=== PATIENT | female | born 1950 | race Caucasian/White ===

== ENCOUNTER → 2016-11-29 | Emergency (ER) | payer BC, OTHER ==
[~2016-11-29] MED LIST: KETOROLAC TROMETHAMINE 30 MG/1 ML VIAL IVPUSH ONE; KETOROLAC TROMETHAMINE 30 MG/1 ML VIAL ONE; LEVOFLOXACIN 500 MG IVPB 100 ML IVPB ONE; ONDANSETRON 4 MG/2 ML VIAL IVPUSH STA; ONDANSETRON 4 MG/2 ML VIAL ONE; OXYCODONE/APAP 5/325MG COMBO TABLET ONE; OXYCODONE/APAP 5/325MG COMBO TABLET PO ONE; SODIUM CHLORIDE 1,000 ML IV STA; traMADol HCL 50 MG TABLET ONE; traMADol HCL 50 MG TABLET PO ONE
[2016-11-29 19:11] VITALS: BMI 41.5
--- NOTE | 2016-11-29 19:39 | PDOC ---
History of Present Illness - General History Source: Patient Exam Limitations: No Limitations - History of Present Illness Initial Comments: 11/29/16 19:44 The patient is a 66 year old female with history of hypertension, hyperlipidemia , renal colic, who presents to the ED complaining of right flank pain, sharp in nature, constant in frequency, not radiating or migrating, ranked 8/10, consistent in nature with previous kidney stones, that began around 2PM today. She states her previous kidney stones have all been all the left side but today she experiences right flank pain. She states UA 2 weeks ago showed hematuria. She also reports associated nausea, no vomiting or diarrhea. She denies fever or chills. She denies dysuria, urgency, or freqeucny. Urologist: Dr. Cisneros <Jessica Lopez - Last Filed: 11/29/16 22:55> - General History Source: Patient <Roge Rosen - Last Filed: 11/29/16 23:58> - General Chief Complaint: Pain, Acute Stated Complaint: KIDNEY PAIN Time Seen by Provider: 11/29/16 19:39 Past History <Jessica Lopez - Last Filed: 11/29/16 22:55> - Past Medical History HTN: Yes Hypercholesterolemia: Yes Kidney Stones: Yes - Surgical History Cholecystectomy: Yes - Immunization History Immunization Up to Date: Yes - Psycho/Social/Smoking Cessation Hx Anxiety: No Suicidal Ideation: No Smoking Status: Yes Smoking History: Never smoked Have you smoked in the past 12 months: No Number of Cigarettes Smoked Daily: 0 Hx Alcohol Use: No Drug/Substance Use Hx: No Substance Use Type: None Hx Substance Use Treatment: No <Roge Rosen - Last Filed: 11/29/16 23:58> - Past Medical History Allergies/Adverse Reactions: Allergies Allergy/AdvReac Type Severity Reaction Status Date / Time erythromycin base Allergy Verified 11/29/16 19:06 [From E-Mycin] Penicillins Allergy Verified 11/29/16 19:06 Home Medications: Ambulatory Orders Atorvastatin Calcium [Lipitor] 10 mg PO HS 03/17/13 Carvedilol [Coreg -] 12.5 mg PO BID 03/17/13 Ramipril 5 mg PO DAILY 03/17/13 Levofloxacin [Levaquin -] 500 mg PO DAILY #5 tablet 03/23/15 Levofloxacin [Levaquin -] 500 mg PO DAILY #7 tablet 11/29/16 Tramadol HCl [Ultram -] 50 mg PO Q6H #20 tablet MDD 199911/29/16 Review of Systems - Review of Systems Able to Perform ROS?: Yes Comments:: 11/29/16 19:47 GENERAL/CONSTITUTIONAL: No fever or chills. No weakness. HEAD, EYES, EARS, NOSE AND THROAT: No change in vision. No ear pain or discharge. No sore throat CARDIOVASCULAR: No chest pain or shortness of breath. RESPIRATORY: No cough, wheezing, or hemoptysis. GASTROINTESTINAL: +Nausea. No abdominal pain, vomiting, diarrhea or constipation. GENITOURINARY: +R flank pain, hematuria. No dysuria, frequency, or urgency. MUSCULOSKELETAL: No joint or muscle swelling or pain. No neck or back pain. SKIN: No rash NEUROLOGIC: No headache, vertigo, loss of consciousness, or change in strength/ sensation. ENDOCRINE: No increased thirst. No abnormal weight change. HEMATOLOGIC/LYMPHATIC: No anemia, easy bleeding, or history of blood clots. ALLERGIC/IMMUNOLOGIC: No hives or skin allergy. <Jessica Lopez - Last Filed: 11/29/16 22:55> *Physical Exam - Vital Signs Last Vital Signs Temp Pulse Resp BP Pulse Ox 97.6 F 85 20 151/83 97 11/29/16 19:06 11/29/16 19:06 11/29/16 19:06 11/29/16 19:06 11/29/16 19:06 - Physical Exam Comments: 11/29/16 19:48 GENERAL: Awake, alert, and fully oriented, mildly uncomfortable appearing. HEAD: No signs of trauma EYES: PERRLA, EOMI, sclera anicteric, conjunctiva clear ENT: Auricles normal inspection, hearing grossly normal, nares patent, oropharynx clear without exudates. Moist mucosa NECK: Normal ROM, supple, no lymphadenopathy, JVD, or masses LUNGS: Breath sounds equal, clear to auscultation bilaterally. No wheezes, and no crackles HEART: Regular rate and rhythm, normal S1 and S2, no murmurs, rubs or gallops ABDOMEN: +mild R CVA ttp. Soft, normoactive bowel sounds. No guarding, no rebound. No masses EXTREMITIES: Normal range of motion, no edema. No clubbing or cyanosis. No cords, erythema, or tenderness NEUROLOGICAL: Cranial nerves II through XII grossly intact. Normal speech, normal gait SKIN: Warm, Dry, normal turgor, no rashes or lesions noted. <Jessica Lopez - Last Filed: 11/29/16 22:55> - Vital Signs Last Vital Signs Temp Pulse Resp BP Pulse Ox 97.6 F 85 20 151/83 97 11/29/16 19:06 11/29/16 19:06 11/29/16 19:06 11/29/16 19:06 11/29/16 19:06 <Roge Rosen - Last Filed: 11/29/16 23:58> ED Treatment Course - LABORATORY CBC & Chemistry Diagram: 11/29/16 19:50 11/29/16 19:55 <Jessica Lopez - Last Filed: 11/29/16 22:55> - LABORATORY CBC & Chemistry Diagram: 11/29/16 19:50 11/29/16 19:55 <Roge Rosen - Last Filed: 11/29/16 23:58> Medical Decision Making - Medical Decision Making 11/29/16 22:[address], reviewed and interpreted by Dr. Stubbs shows a 4.5 mm obstructing stone in the distal right ureter just prior to the uretovesical junction with mild right hydronephrosis and hydroureter. <Jessica Lopez - Last Filed: 11/29/16 22:55> - Medical Decision Making 11/29/16 23:57 Dr. Rosen: The scribe's documentation has been prepared under my direction and personally reviewed by me in its entirery. I confirm that the note above accurately reflects all work, treatment, procedures, and medical decision making performed by me. patient with UTI and OBSTRUCTING right_SIDED kidney stone. Pt feels well enough to go home and follow up with urology <Roge Rosen - Last Filed: 11/29/16 23:58> *DC/Admit/Observation/Transfer - Attestations Scribe Attestion: 11/29/16 19:49 Documentation prepared by Jessica Lopez, acting as medical billing and coding specialist for Roge Rosen DO. <Jessica Lopez - Last Filed: 11/29/16 22:55> - Discharge Dispostion Admit: No <Roge Rosen - Last Filed: 11/29/16 23:58> Diagnosis at time of Disposition: Urinary tract obstruction due to kidney stone, Ureteral stone with hydronephrosis - Discharge Dispostion Disposition: HOME Condition at time of disposition: Stable - Prescriptions Prescriptions: Levofloxacin [Levaquin -] 500 mg PO DAILY #7 tablet Tramadol HCl [Ultram -] 50 mg PO Q6H #20 tablet MDD 1999 - Referrals Referrals: Mateus Townsend MD [Primary Care Provider] - Charanjit Kolb MD [Staff Physician] - - Patient Instructions Printed Discharge Instructions: DI for Urinary Tract Infection (UTI), Kidney Stones -- Adult
[2016-11-29 20:22] LABS: BASOPHIL 0.6 % (0-2.0); EOSINOPHIL 2.2 % (0-4.5); MCH 32.1 pg (25.7-33.7); MCHC 33.5 g/dl (32.0-36.0); MEAN CELL VOLUME 95.7 fl (80-96); MEAN PLT VOLUME 9.9 fl (7.5-11.1); NEUTROPHILS 67.2 % (42.8-82.8); PLATELET COUNT 202 K/MM3 (134-434); RDW 13.3 % (11.6-15.6)
[2016-11-29 20:45] LABS: ALBUMIN 3.8 g/dl (3.4-5.0); ALK PHOS 81 U/L (45-117); ANION GAP 10 (8-16); BILIRUBIN,TOTAL 0.5 mg/dL (0.2-1.0); CALCIUM 8.6 mg/dL (8.5-10.1); CO2 25 mmol/L (21-32); CREATININE 0.9 mg/dL (0.55-1.02); GLUCOSE,RANDOM 90 mg/dL (74-106); SGOT/AST 12 U/L (15-37); SGPT/ALT 23 U/L (12-78)
[2016-11-29 20:58] LABS: URINE APPEARANCE SLCLOUDY; URINE BILIRUBIN NEGATIVE (NEGATIVE); URINE COLOR LTYELLOW; URINE GLUCOSE (UA) NEGATIVE (NEGATIVE); URINE KETONE NEGATIVE (NEGATIVE); URINE NITRITE POSITIVE (NEGATIVE); URINE PROTEIN NEGATIVE (NEGATIVE); URINE UROBILINOGEN NEGATIVE E.U./dl (0.2-1.0)
[2016-11-29 21:05] LABS: URINE BLOOD 2+ (NEGATIVE); URINE LEUK ESTERASE 2+ (NEGATIVE)
[2016-11-29 21:13] LABS: URINE BACTERIA MODERATE /hpf (NONE SEEN); URINE MUCUS RARE; URINE WBC 25 /hpf (3-5)
[2016-11-29 21:14] LABS: URINE RBC 4 /hpf (0-3)
[2016-11-30 00:31] VITALS: BP 140/82; PULSE 82; TEMP 97.8
--- NOTE | 2016-12-07 11:53 | OP ---
DATE OF OPERATION: 12/06/2016 PREOPERATIVE DIAGNOSIS: Obstructing right distal ureteral stone. POSTOPERATIVE DIAGNOSIS: Obstructing right distal ureteral stone. PROCEDURE: Cystoscopy, ureteroscopy, stone manipulation, stent placement. SURGEON: Radha Conway MD INDICATION: Patient is a 66-year-old female with history of recurrent nephrolithiasis, now with a 5-mm obstructing right distal ureteral stone and UTI. She was taken to the OR for ureteroscopy, laser lithotripsy, and stent placement. Risks, benefits, and alternatives discussed. After informed consent was obtained, patient taken to the OR and placed supine on the table. After cardiac monitoring initiated and general anesthesia established, she was prepped and draped in the dorsal lithotomy position. The rigid cystoscope was inserted into the urethra without difficulty and into the bladder. Left ureteral orifice was normal. Right ureteral orifice revealed evidence of of a stone. A guidewire was advanced beyond the stone into the right renal pelvis guidewire withdrawn. Scope was advanced, and the stone was manipulated with the scope and then the stone then passed into the bladder. Ureteroscope was then advanced to inspect the entire ureter. Entire ureter was clean; no other stones were noted. Contrast injected for retrograde pyelogram noted hydroureteronephrosis. Ureteroscope was then removed. The stone was removed and sent to Pathology for analysis, and then a 6-Wallisian 24-cm stent was then advanced in fashion. Fluoroscopy confirmed stent to be in position. Patient then awoken from anesthesia and transferred to the recovery room in stable condition. There were no complications. Estimated blood loss was minimal. RADHA CONWAY M.D. [id number]
== END | disposition home or self-care (01) ==
LOC: JER 19:05
PROC: 3E03329 Introduction of Other Anti-infective into Peripheral Vein, Percutaneous Approach (ICD-10-PCS; principal; 2016-11-29)
PROC: 3E0333Z Introduction of Anti-inflammatory into Peripheral Vein, Percutaneous Approach (ICD-10-PCS; 2016-11-29)
PROC: 3E033GC Introduction of Other Therapeutic Substance into Peripheral Vein, Percutaneous Approach (ICD-10-PCS; 2016-11-29)
PROC: 3E0337Z Introduction of Electrolytic and Water Balance Substance into Peripheral Vein, Percutaneous Approach (ICD-10-PCS; 2016-11-29)
DX: N28.89 Other specified disorders of kidney and ureter (principal); N13.39 Other hydronephrosis; N20.1 Calculus of ureter; I10 Essential (primary) hypertension; E78.5 Hyperlipidemia, unspecified
CPT/HCPCS: 36415; 74176; 80053; 81003; 81015; 85025; 87086; 87186; 99282-25

== ENCOUNTER 2016-12-06 06:14 | Day surgery (SDC) | payer BC, OTHER ==
[2016-12-05 14:40] VITALS: BMI 42.6
[2016-12-06] MEDS ORDERED: LIDOCAINE HCL/PF 2% SDV 5ML VIAL ONE (07:31)
[2016-12-06] MEDS ORDERED: LEVOFLOXACIN 500 MG IVPB 100 ML IVPB ONE (07:31)
[2016-12-06] MEDS ORDERED: PROPOFOL 20 ML ONE ×2 (07:32)
[2016-12-06] MEDS ORDERED: MIDAZOLAM HCL 2 MG/2 ML SINGLE DOSE VIAL ONE (07:32)
[2016-12-06] MEDS ORDERED: LEVOFLOXACIN 500 MG PREMIX BAG IVPB ONE (07:45)
[2016-12-06] MEDS ORDERED: IOHEXOL 300 MG/ML INFUS..BTL IJ ONE (07:50)
[2016-12-06] MEDS ORDERED: DEXAMETHASONE SOD PHOSPHATE 4 MG/1 ML VIAL ONE (07:55)
[2016-12-06] MEDS ORDERED: oxyCODONE HCL 5 MG TABLET PO PRN (08:09)
--- NOTE | 2016-12-06 08:11 | OP ---
Operative Note - Note: Operative Date: 12/06/16 Pre-Operative Diagnosis: right distal ureteral stone Operation: cysto/retrograde/right ureteroscopy/stone manipulation/stent placement Post-Operative Diagnosis: Same as Pre-op Surgeon: Charanjit Kolb Anesthesia: General Specimens Removed: stone Estimated Blood Loss (mls): 2 Drains & Tubes with Location: 6fr, 24cm stent Operative Report Dictated: Yes
[2016-12-06] MEDS ORDERED: PROMETHAZINE HCL 25 MG/1 ML VIAL IVPUSH PRN (08:15)
[2016-12-06] MEDS ORDERED: LACTATED RINGERS SOLUTION 1,000 ML IV SCH (08:15)
[2016-12-06] MEDS ORDERED: ONDANSETRON 4 MG/2 ML VIAL IVPUSH PRN (08:15)
[2016-12-06] MEDS ORDERED: ACETAMINOPHEN 325 MG TABLET (FP) PO PRN (08:15)
[2016-12-06] MEDS ORDERED: ELECTROLYTE-148 SOLN 1,000 ML IV SCH (08:15)
[2016-12-06] MEDS ORDERED: oxyCODONE HCL 5 MG TABLET ONE (09:56)
[2016-12-06 10:22] VITALS: TEMP 98.2
[2016-12-06 11:35] VITALS: BP 100/60; PULSE 79
--- NOTE | 2016-12-07 08:34 | PATH ---
Surgical Pathology Report Patient Name: ANA MICHELLE [facility]. Rec. #: [id number] /Age/Gender: 1950 (Age: 66) / F Account: [id number] Location: [facility] Taken: 12/06/2016 Received: 12/06/2016 Reported: 12/07/2016 Physicians: Charanjit Kolb M.D. Specimen(s) Received BLADDER STONE Clinical History Right ureteral calculi Final Diagnosis BLADDER STONE, EXTRACTION: CALCULI SUBMITTED FOR CHEMICAL ANALYSIS (gross only). Electronically Signed Jorge Luis Hoffmann M.D. Gross Description Received fresh labeled "bladder stone," is a 0.6 cm in greatest dimension otto-brown, irregular calculus which is sent for chemical analysis. /12/06/2016/12/06/2016
[2016-12-14 00:12] LABS: COLOR Brown (.); URIC ACID 40 % (.)
--- NOTE | 2017-01-02 22:34 | OP ---
DATE OF OPERATION: 12/06/2016 PREOPERATIVE DIAGNOSIS: Right distal ureteral stone. POSTOPERATIVE DIAGNOSIS: Right distal ureteral stone. PROCEDURE: Cystoscopy, retrograde pyelogram, right ureteroscopy, stone manipulation, and stent placement. SURGEON: Radha Conway MD INDICATION: The patient is a 66-year-old female with recurrent nephrolithiasis, now with an obstructing right distal ureteral stone. She is taken to the OR for ureteroscopy of the stone. The patient was taken to the OR, placed supine on operating table, cardiac monitoring administered, general anesthesia established. She was prepped and draped in dorsal lithotomy position. The 22 sheath cystoscope was inserted without difficulty. Urethra was normal. The bladder was then visualized. Attention was turned to the right ureteral orifice and the guidewire was advanced into the orifice into the right renal pelvis. Alongside the guidewire, a semirigid ureteroscope was advanced into the distal ureter, where a stone was seen. Using the tip of the scope and irrigation, the stone was irrigated out of the ureter and into the bladder. The stone was then retrieved out of bladder and sent to Pathology for analysis. Repeat ureteroscopy revealed no evidence of any other ureteral stone with the rigid ureteroscope. Rigid ureteroscope was then removed and a 6-Algerian 24-cm double pigtail stent was then advanced in a monorail fashion. Fluoroscopy confirmed stent being in good position. Patient then awoke from anesthesia and transferred to recovery room in stable condition. There were no complications. Estimated blood loss minimal. RADHA CONWAY M.D. [id number]
== END 2016-12-06 11:40 | disposition home or self-care (01) ==
LOC: JASU-SURG 06:14
PROVIDERS: ATTEND Urology
PROC: 02HV33Z Insertion of Infusion Device into Superior Vena Cava, Percutaneous Approach (ICD-10-PCS; principal; 2016-12-06 07:30)
PROC: B548ZZA Ultrasonography of Superior Vena Cava, Guidance (ICD-10-PCS; 2016-12-06 07:30)
DX: M86.9 Osteomyelitis, unspecified (principal)
CPT/HCPCS: 36415; 76000-TC; 82360; 88300-TC; 94760

== ENCOUNTER 2016-12-28 19:19 | Emergency (ER) | payer BC, OTHER ==
[2016-12-28 19:27] VITALS: BP 139/82; PULSE 70; TEMP 98.2; BMI 40.9
--- NOTE | 2016-12-28 20:54 | PDOC ---
History of Present Illness - General Chief Complaint: Injury Stated Complaint: PCP SENT/FALL/HEAD INJURY Time Seen by Provider: 12/28/16 20:46 History Source: Patient Exam Limitations: No Limitations - History of Present Illness Initial Comments: CHIEF COMPLAINT: 66 y/o female with PMH HTN, HLD, chronic kidney stones c/o left elbow and right knee pain s/p fall today. HISTORY OF PRESENT ILLNESS: The patient was at [facility] about 9 hours ago when the wheels to her cart got stuck and she fell over the cart. She states she hit her right elbow and left knee first then hit her forehead on the ground. She denies LOC, POSEY, changes in vision/hearing, neck pain, n/v/d, CP, SOB, abd pain, back pain, numbness/tingling in extremities. She is walking but with slight limp. She is not on a blood thinner. She saw her PCP today who sent her in mostly for xrays of her left arm. The patient took a percocet at home prior to coming to the ER. Vital signs on arrival are within normal limits. REVIEW OF SYSTEMS: GENERAL/CONSTITUTIONAL: No fever/chills. No weakness. No weight change. HEAD, EYES, EARS, NOSE AND THROAT: No change in vision. No ear pain or discharge. No sore throat. CARDIOVASCULAR: No chest pain or shortness of breath. RESPIRATORY: No cough, wheezing, or hemoptysis. GASTROINTESTINAL: No abd pain, nausea, vomiting, diarrhea. GENITOURINARY: No dysuria, frequency, or change in urination. MUSCULOSKELETAL: +left elbow and right knee pain. No neck or back pain. SKIN: No rash or easy bruising. NEUROLOGIC: No headache, vertigo, loss of consciousness, or loss of sensation. PHYSICAL EXAM: GENERAL: The patient is awake, alert, and fully oriented, in no acute distress. She is an obese female, ambulatory with slight limp. HEAD: Slightly raised hematoma to right forehead, approximately 4cm x 4cm. No battles signs NECK: No midline cervical spine TTP or step offs. Full flexion and extension of cervical spine ENT: Pupils equal, round and reactive to light, extraocular movements intact, sclera anicteric, conjunctiva clear. No raccoon eyes. No pain with EOMs. No hemotympanum b/l. LUNGS: Clear to auscultation bilaterally. Normal excursion. No respiratory distress or use of accessory muscles. CV: RRR, S1/S2, no MRG. Cap refill < 2 sec. ABDOMEN: Soft, non-distended, non-tender even to deep palpation, no hepatomegaly or splenomegaly, no masses. EXTREMITIES: Pt holding left arm at her side. TTP of proximal left forearm and olecranon without obvious deformity, swelling or crepitus. Ecchymosis to right proximal tibial with TTP of that area. Full flexion and extension of right knee. NEUROLOGICAL: Normal speech, normal gait. CN II-XII grossly intact. PSYCH: Normal mood, normal affect. SKIN: Warm, dry, normal turgor, no rashes or lesions noted. Past History - Past Medical History Allergies/Adverse Reactions: Allergies Allergy/AdvReac Type Severity Reaction Status Date / Time erythromycin base Allergy "ARM Verified 12/05/16 14:47 [From E-Mycin] SWELLED AFTER IV MED GIVEN" Penicillins Allergy "THROAT Verified 12/05/16 14:47 WAS ITCHY,RASH" tramadol AdvReac Intermediate Nausea Verified 12/06/16 06:36 Home Medications: Ambulatory Orders Atorvastatin Calcium [Lipitor] 10 mg PO HS 03/17/13 Carvedilol [Coreg -] 12.5 mg PO BID 03/17/13 Ramipril 5 mg PO DAILY 03/17/13 Aspirin [Aspirin EC] 81 mg PO DAILY 12/05/16 Oxycodone HCl/Acetaminophen [Percocet 5-325 mg Tablet] 1 tab PO PRN PRN HTN: Yes Hypercholesterolemia: Yes Kidney Stones: Yes - Surgical History Cholecystectomy: Yes Orthopedic Surgery: Yes (JIE ROTATOR CUFF REPAIR) - Immunization History Immunization Up to Date: Yes - Psycho/Social/Smoking Cessation Hx Anxiety: No Suicidal Ideation: No Smoking Status: Yes Smoking History: Never smoked Have you smoked in the past 12 months: No Number of Cigarettes Smoked Daily: 0 If you are a former smoker, when did you quit?: 7YRS AGO Information on smoking cessation initiated: No Hx Alcohol Use: Yes (OCCAS) Drug/Substance Use Hx: No Substance Use Type: Alcohol Hx Substance Use Treatment: No *Physical Exam - Vital Signs Last Vital Signs Temp Pulse Resp BP Pulse Ox 98.2 F 70 20 139/82 99 12/28/16 19:23 12/28/16 19:23 12/28/16 19:23 12/28/16 19:23 12/28/16 19:23 Medical Decision Making - Medical Decision Making A/P: 66 y/o female with left elbow and right knee pain s/p trip and fall approximately 9 hours ago. Plan is as follows: 1. xray left elbow/forearm 2. xray right knee The patient was offered pain medication but is declining at this time. Right knee xray IMPRESSION: Mild osteoarthritic changes. Xray left elbow/forearm IMPRESSION: Minimal irregularity of the radial head. Cannot rule out nondisplaced fracture. No joint effusion identified. Looked up her previous records and had a left elbow fracture in 2009 and there was a positive anterior fat pad. Suspect her findings may be from old fracture ? Explained results to the patient and suggested she continue to use the sling but do not feel she should be splinted at this time. Suggested f/u with either her own ortho doc or Dr. Guthrie. Instructed her to return to the ER immediately if symptoms worsen and we can splint her. She is in agreement with this plan. She does admit she has enough percocet at home and doesn't need a prescription. The patient verbalizes understanding of all instructions, has no further questions and is awaiting discharge. *DC/Admit/Observation/Transfer Diagnosis at time of Disposition: Elbow pain, left Traumatic ecchymosis of right lower leg Qualifiers: Encounter type: initial encounter Qualified Code(s): S80.11XA - Contusion of right lower leg, initial encounter Traumatic hematoma of head Qualifiers: Encounter type: initial encounter Qualified Code(s): S00.93XA - Contusion of unspecified part of head, initial encounter Injury of head Qualifiers: Encounter type: initial encounter Qualified Code(s): S09.90XA - Unspecified injury of head, initial encounter - Discharge Dispostion Disposition: HOME Condition at time of disposition: Good - Referrals Referrals: Mateus Townsend MD [Primary Care Provider] - Hero Guthrie MD [Staff Physician] - - Patient Instructions Printed Discharge Instructions: DI for Closed Head Injury, DI for Elbow Pain, DI for Contusion, DI for Hematoma (Bruise) Additional Instructions: Discharge Instructions: -Apply ice to both your leg and elbow -Take percocet for pain at home -Use sling for comfort -Follow up with Dr. Townsend and Dr. Guthrie next week -Return to the ER with any worsening or concerning symptoms.
== END 2016-12-28 22:09 | disposition home or self-care (01) ==
LOC: SUPCPDRO 19:19 → JERFT 19:19
DX: S80.11XA Contusion of right lower leg, initial encounter (principal); S00.93XA Contusion of unspecified part of head, initial encounter; S09.90XA Unspecified injury of head, initial encounter; W18.40XA Slipping, tripping and stumbling without falling, unspecified, initial encounter; Y93.89 Activity, other specified; Y92.512 Supermarket, store or market as the place of occurrence of the external cause; I10 Essential (primary) hypertension; E78.5 Hyperlipidemia, unspecified; Z87.442 Personal history of urinary calculi
CPT/HCPCS: 73070-TC-LT; 73090-TC-LT; 73560-TC-RT; 99281-25

== ENCOUNTER 2017-07-22 03:34 | Observation (INO) | payer OTHER, BC ==
[2017-07-22] MEDS ORDERED: SODIUM CHLORIDE 1,000 ML IV STA (04:25)
--- NOTE | 2017-07-22 04:26 | PDOC ---
History of Present Illness - General Chief Complaint: Pain, Acute Stated Complaint: SIDE PAIN Time Seen by Provider: 07/22/17 04:03 History Source: Patient Exam Limitations: No Limitations - History of Present Illness Travel History: No Initial Comments: 07/22/17 04:31 67yo Female patient w/ PmHx: HTN, HLD, Recurrent Renal Colic presents to ED c/o left flank pain. Patient state she was seen yesterday in this emergency department for Renal colic and sent home with instructions to increase fluid intake to try and pass stone. Patient return today states symptoms had improved , but return and is worse. Associated: Nausea, left flank pain. Review of CT- Scan from yesterday shows 6-7mm stone obstructing. Patient denies any other complaints at this time. PCP- Dr. Townsend Nephrology- Dr. Weaver Urology- Dr. Kolb Timing/Duration: reports: getting worse. denies: constant, changing over time, intermittent, resolved prior to arrival, gone now, other Quality: reports: moderate, aching, throbbing. denies: mild, severe, burning, cramping, dullness, fullness, sharpness, stabbing, other Abdominal Pain Onset Location: reports: flank (Left). denies: RUQ, LUQ, RLQ, LLQ, epigastric, periumbilical, suprapubic, generalized abdomen, unknown, other Pain Radiation: reports: no radiation. denies: RUQ, LUQ, RLQ, LLQ, epigastric, periumbilical, flank, groin, scapula, shoulder, chest, back, other Activities at Onset: reports: no specific activity. denies: none, exertion, emotional upset, rest, sleep, eating, working, sexual intercourse, other Treatment Prior to Arrive: worse with: analgesics, antacids, cold pack, heat, laxative, enema, other Aggravating Factors: worse with: None, Defecation, Eating, Emotional upset, Exertion, [place], Movement, Voiding, Change in position Past History - Travel Traveled outside of the country in the last 30 days: No Close contact w/someone who was outside of country & ill: No - Past Medical History Allergies/Adverse Reactions: Allergies Allergy/AdvReac Type Severity Reaction Status Date / Time erythromycin base Allergy "ARM Verified 07/22/17 04:08 [From E-Mycin] SWELLED AFTER IV MED GIVEN" Penicillins Allergy "THROAT Verified 07/22/17 04:08 WAS ITCHY,RASH" tramadol AdvReac Intermediate Nausea Verified 07/22/17 04:08 Home Medications: Ambulatory Orders Atorvastatin Calcium [Lipitor] 10 mg PO HS 03/17/13 Carvedilol [Coreg -] 12.5 mg PO BID 03/17/13 Aspirin [Aspirin EC] 81 mg PO DAILY 12/05/16 Losartan Potassium [Cozaar -] 50 mg PO DAILY 07/20/17 COPD: No HTN: Yes Hypercholesterolemia: Yes Kidney Stones: Yes - Surgical History Cholecystectomy: Yes Orthopedic Surgery: Yes (JIE ROTATOR CUFF REPAIR) - Immunization History Immunization Up to Date: Yes - Suicide/Smoking/Psychosocial Hx Smoking Status: Yes Smoking History: Former smoker Have you smoked in the past 12 months: No Number of Cigarettes Smoked Daily: 0 If you are a former smoker, when did you quit?: 6 YRS Information on smoking cessation initiated: No Hx Alcohol Use: No Drug/Substance Use Hx: No Substance Use Type: None Hx Substance Use Treatment: No Abd/GI Specific PMHX - Complaint Specific PMHX Colitis: No Diverticulitis: No Gall Bladder Disease: No GERD: No Hepatitis: No Irritable Bowel Synd (IBS): No Pancreatitis: No GI Ulcer Disease: No Review of Systems - Review of Systems Able to Perform ROS?: Yes Is the patient limited Indonesian proficient: No Constitutional: No: Chills, Fever ABD/GI: Yes: Nausea. No: Vomiting : No: Burning, Dysuria, Hematuria Musculoskeletal: Yes: Back Pain (Left Flank Pain) All Other Systems: Reviewed and Negative *Physical Exam - Vital Signs Last Vital Signs Temp Pulse Resp BP Pulse Ox 97.5 F L 75 14 135/55 97 07/22/17 04:08 07/22/17 04:08 07/22/17 04:08 07/22/17 04:08 07/22/17 04:08 - Physical Exam General Appearance: Yes: Nourished, Appropriately Dressed, Apparent Distress, Moderate Distress. No: Mild Distress, Severe Distress Respiratory/Chest: positive: Lungs Clear, Normal Breath Sounds. negative: Chest Tender, Respiratory Distress, Accessory Muscle Use, Rapid RR, Decreased Breath Sounds, Paradoxal Breathing, Crackles, Rales, Rhonchi, Stridor, Wheezing , Dullness Cardiovascular: positive: Regular Rhythm, Regular Rate Gastrointestinal/Abdominal: positive: Normal Bowel Sounds, Soft. negative: Increased Bowel Sounds, Decreased BS, Protuberent, Distended, Guarding, Rebound , Tenderness, Hernia Musculoskeletal: positive: Normal Inspection, CVA Tenderness, CVA Tenderness (L) . negative: CVA Tenderness (R), Decreased Range of Motion, Vertebral Tenderness Extremity: positive: Normal Capillary Refill, Normal Inspection, Normal Range of Motion, Pelvis Stable. negative: Pedal Edema, Swelling, Calf Tenderness, Erythema, Inflammation Integumentary: positive: Normal Color, Dry, Warm. negative: Erythema, Jaundice , Hives, Rash Neurologic: positive: body repairer II-XII NML intact, Fully Oriented, Alert, Normal Mood/ Affect, Normal Response, Motor Strength 01/04 ED Treatment Course - LABORATORY CBC & Chemistry Diagram: 07/22/17 04:40 07/22/17 04:40 *DC/Admit/Observation/Transfer Diagnosis at time of Disposition: Kidney stone on left side - Discharge Dispostion Condition at time of disposition: Fair Admit: Yes - Referrals Referrals: Mateus Townsend MD [Primary Care Provider] - - Patient Instructions - Post Discharge Activity
[2017-07-22] MEDS ORDERED: KETOROLAC TROMETHAMINE 30 MG/1 ML VIAL IVPUSH ONE (04:30)
[2017-07-22] MEDS ORDERED: ONDANSETRON 4 MG/2 ML VIAL IVPUSH ONE (04:30)
[2017-07-22 04:52] LABS: BASOPHIL 0.9 % (0-2.0); EOSINOPHIL 3.7 % (0-4.5); MCH 32.3 pg (25.7-33.7); MCHC 33.4 g/dl (32.0-36.0); MEAN CELL VOLUME 96.7 fl (80-96); MEAN PLT VOLUME 9.5 fl (7.5-11.1); PLATELET COUNT 183 K/MM3 (134-434); RDW 13.4 % (11.6-15.6); WHITE BLOOD COUNT 7.7 K/mm3 (4.0-10.0)
[2017-07-22 04:53] LABS: URINE APPEARANCE CLEAR; URINE BILIRUBIN NEGATIVE (NEGATIVE); URINE BLOOD 2+ (NEGATIVE); URINE COLOR STRAW; URINE GLUCOSE (UA) NEGATIVE (NEGATIVE); URINE KETONE NEGATIVE (NEGATIVE); URINE NITRITE NEGATIVE (NEGATIVE); URINE PROTEIN NEGATIVE (NEGATIVE); URINE UROBILINOGEN NEGATIVE mg/dL (0.2-1.0)
[2017-07-22 04:58] LABS: URINE BACTERIA RARE /hpf (NONE SEEN); URINE HYALINE CAST 1 /lpf; URINE MUCUS RARE
[2017-07-22 05:24] LABS: ALBUMIN 3.1 g/dl (3.4-5.0); ALK PHOS 79 U/L (45-117); ANION GAP 9 (8-16); BILIRUBIN,TOTAL 0.3 mg/dL (0.2-1.0); CALCIUM 7.7 mg/dL (8.5-10.1); CO2 23 mmol/L (21-32); CREATININE 0.8 mg/dL (0.55-1.02); GLUCOSE,RANDOM 138 mg/dL (74-106); SGPT/ALT 18 U/L (12-78); TOT PROT 6.2 g/dl (6.4-8.2)
[2017-07-22 05:26] LABS: SGOT/AST 16 U/L (15-37)
[2017-07-22] MEDS ORDERED: ONDANSETRON 4 MG/2 ML VIAL IVPUSH PRN (06:17)
--- NOTE | 2017-07-22 06:40 | HP ---
CHIEF COMPLAINT: Left flank pain PCP: Kristian HISTORY OF PRESENT ILLNESS: This is a 67 year old female with a past medical history of renal stones who presented to the ED with L flank pain for 2 days. She was seen here in the ED on 07/20; CT revealed 7mm obstructing stone in the L distal ureter. She was tx with zofran, toradol and morphine with relief and was sent home with instructions to f/u with her urologsit as an outpatient. She returned today as the pain recurred and she was unable to keep anything down. Upon exam she reports that the nausea is better, but the pain is only minimally better. Recent Travel: pt denies PAST MEDICAL HISTORY: HTN HLD renal stones (mult episodes over past 27 years) herniated lumbar discs with stenosis PAST SURGICAL HISTORY: right ureteral stent 12/06/16, removed about 1 week later cholecytectomy B/L rotator cuff repair x 2 Social History: Smoking: pt denies, quit 7 years ago Alcohol: occ glass or 2 of wine with dinner Drugs: pt denies Family History: mother age 90, CHF, DM father age 57, cirrhosis brother w/ kidney stones sister s/p BrCA, DM daughter w/ hypothyroid Allergies erythromycin base [From E-Mycin] Allergy (Verified 07/22/17 04:08) "ARM SWELLED AFTER IV MED GIVEN" Penicillins Allergy (Verified 07/22/17 04:08) "THROAT WAS ITCHY,RASH" tramadol Adverse Reaction (Intermediate, Verified 07/22/17 04:08) Nausea HOME MEDICATIONS: 3 Medication Instructions Recorded Atorvastatin Calcium [Lipitor] 10 mg PO HS 03/17/13 Carvedilol [Coreg -] 12.5 mg PO BID 03/17/13 Aspirin [Aspirin EC] 81 mg PO DAILY 12/05/16 Losartan Potassium [Cozaar -] 50 mg PO DAILY 07/20/17 REVIEW OF SYSTEMS CONSTITUTIONAL: Absent: fever, chills, diaphoresis, generalized weakness, malaise, loss of appetite, weight change HEENT: Absent: rhinorrhea, nasal congestion, throat pain, throat swelling, difficulty swallowing, mouth swelling, ear pain, eye pain, visual changes CARDIOVASCULAR: Absent: chest pain, syncope, palpitations, irregular heart rate, lightheadedness , peripheral edema RESPIRATORY: Absent: cough, shortness of breath, dyspnea with exertion, orthopnea, wheezing, stridor, hemoptysis GASTROINTESTINAL: Present: nausea, vomiting Absent: abdominal pain, abdominal distension, diarrhea, constipation, melena, hematochezia GENITOURINARY: Present: flank pain Absent: dysuria, frequency, urgency, hesitancy, hematuria, genital pain MUSCULOSKELETAL: Absent: myalgia, arthralgia, joint swelling, back pain, neck pain SKIN: Absent: rash, itching, pallor HEMATOLOGIC/IMMUNOLOGIC: Absent: easy bleeding, easy bruising, lymphadenopathy, frequent infections ENDOCRINE: Absent: unexplained weight gain, unexplained weight loss, heat intolerance, cold intolerance NEUROLOGIC: Absent: headache, focal weakness or paresthesias, dizziness, unsteady gait, seizure, mental status changes, bladder or bowel incontinence PSYCHIATRIC: Absent: anxiety, depression, suicidal or homicidal ideation, hallucinations. PHYSICAL EXAMINATION Vital Signs - 24 hr 3 07/22/17 07/22/17 04:08 06:11 Temperature 97.5 F L 98.3 F Pulse Rate 75 Pulse Rate [ 61 Apical] Respiratory 14 14 Rate Blood Pressure 135/55 Blood Pressure 140/66 [Left Arm] O2 Sat by Pulse 97 98 Oximetry (%) GENERAL: Awake, alert, and fully oriented, in no acute distress. HEAD: Normal with no signs of trauma. EYES: Pupils equal, round and reactive to light, extraocular movements intact, sclera anicteric, conjunctiva clear. No lid lag. EARS, NOSE, THROAT: Ears normal, nares patent, oropharynx clear without exudates. Moist mucous membranes. NECK: Normal range of motion, supple without lymphadenopathy, JVD, or masses. LUNGS: Breath sounds equal, clear to auscultation bilaterally. No wheezes, and no crackles. No accessory muscle use. HEART: Regular rate and rhythm, normal S1 and S2 without murmur, rub or gallop. ABDOMEN: Soft, nontender, not distended, normoactive bowel sounds, no guarding, no rebound, no masses. No hepatomegaly or splenomegaly. MUSCULOSKELETAL: Normal range of motion at all joints. No bony deformities or tenderness. mild L CVA tenderness. UPPER EXTREMITIES: 2+ pulses, warm, well-perfused. No cyanosis. No clubbing. No peripheral edema. LOWER EXTREMITIES: 2+ pulses, warm, well-perfused. No calf tenderness. No peripheral edema. NEUROLOGICAL: Cranial nerves II-XII intact. Normal speech. Normal gait. PSYCHIATRIC: Cooperative. Good eye contact. Appropriate mood and affect. SKIN: Warm, dry, normal turgor, no rashes or lesions noted, normal capillary refill. Laboratory Results - last 24 hr 3 07/22/17 07/22/17 07/22/17 04:40 04:40 04:40 WBC 7.7 RBC 3.79 Hgb 12.2 Hct 36.6 MCV 96.7 H MCH 32.3 MCHC 33.4 RDW 13.4 Plt Count 183 D MPV 9.5 Neutrophils % 57.0 Lymphocytes % 32.5 D Monocytes % 5.9 Eosinophils % 3.7 Basophils % 0.9 Sodium 142 Potassium 4.3 Chloride 110 H Carbon Dioxide 23 Anion Gap 9 BUN 15 Creatinine 0.8 Creat Clearance w eGFR > 60 Random Glucose 138 H D Calcium 7.7 L Total Bilirubin 0.3 AST 16 D ALT 18 Alkaline Phosphatase 79 Total Protein 6.2 L Albumin 3.1 L Urine Color Straw Urine Appearance Clear Urine pH 5.0 Ur Specific [place] 1.006 Urine Protein Negative Urine Glucose (UA) Negative Urine Ketones Negative Urine Blood 2+ H Urine Nitrite Negative Urine Bilirubin Negative Urine Urobilinogen Negative Urine WBC (Auto) 4 Urine RBC (Auto) 7 Ur Epithelial Cells Rare Urine Bacteria Rare Hyaline Casts 1 Urine Mucus Rare ECG Sinus bradycardia vent rate 59, QTC [address]/T changes ASSESSMENT/PLAN: 67yF with PMH kidney stones s/p R ureteral stent 12/06/16, HTN, HLD, herniated lumbar discs with stenosis presented to the ED with L flank pain. Kidney stone/renal colic - morphine 2mg Q4h PRN, monitor efficacy and increased dose PRN - zofran 4mg Q6h PRN - hold ASA and nSAIDs for possible intervention - flomax daily - NPO for now - urology consult HTN - cont home meds HLD - cont home meds DVT PPX - deferred, expected LOS <48h FEN - NS @ 75cc/hr - BMP in am - NPO for now Dispo: Pt currently requires inpatient management of her emergent condition; however expected LOS is <2MN Visit type - Emergency Visit Emergency Visit: Yes ED Registration Date: 07/22/17 Care time: The patient presented to the Emergency Department on the above date and was hospitalized for further evaluation of their emergent condition. - New Patient This patient is new to me today: Yes Date on this admission: 07/22/17 - Critical Care Critical Care patient: No
[2017-07-22] MEDS: SODIUM CHLORIDE 1,000 ML IV SCH ×2 (08:00→16:31)
[2017-07-22 08:03] VITALS: BMI 43.2
[2017-07-22] MEDS: morphine SULFATE 4 MG/ML VIAL IVPUSH PRN ×2 (08:08→12:48)
[2017-07-22] MEDS: CARVEDILOL 12.5 MG TABLET (FP) PO SCH ×2 (09:34→21:29)
[2017-07-22] MEDS ORDERED: PNEUMOC 13-VAL CONJ-DIP CRM/PF 0.5 ML DISP.SYRIN IM ONE (10:00)
[2017-07-22] MEDS ORDERED: LOSARTAN POTASSIUM 50 MG TABLET (FP) PO SCH (10:00)
--- NOTE | 2017-07-22 13:56 | EKG ---
Test Reason : Blood Pressure : / mmHG Vent. Rate : 059 BPM Atrial Rate : 059 BPM P-R Int : 170 ms QRS Dur : 088 ms QT Int : 440 ms P-R-T Axes : 047 -10 009 degrees QTc Int : 435 ms SINUS BRADYCARDIA OTHERWISE NORMAL ECG WHEN COMPARED WITH ECG OF 22-MAR-2015 06:30, NO SIGNIFICANT CHANGE WAS FOUND Confirmed by RAMOS MCKEE MD ([id number]) on 07/22/2017 1:56:34 PM Referred By: Confirmed By:RAMOS MCKEE MD
[2017-07-22 14:13] LABS: URINE LEUK ESTERASE TRACE (NEGATIVE)
[2017-07-22] MEDS ORDERED: oxyCODONE HCL 5 MG TABLET PO PRN (16:12)
--- NOTE | 2017-07-22 17:08 | CON.GU ---
Consult - History of Present Illness History of Present Illness: 67 yo female with h/o recurrent nephrolithiasis, now with left sided flank pain and 7mm LDU stone. No fever/chills. Admitted for pain control - Past Medical History Cardio/Vascular: Yes: HTN, Hyperlipdemia Renal/: Yes: Renal Calculi - Past Surgical History Past Surgical History: Yes: Cholecystectomy, - Alcohol/Substance Use Hx Alcohol Use: No - Smoking History Smoking history: Former smoker Have you smoked in the past 12 months: No Aproximately how many cigarettes per day: 0 If you are a former smoker, when did you quit?: 6 YRS - Social History ADL: Independent History of Recent Travel: No Home Medications - Allergies Allergies/Adverse Reactions: Allergies Allergy/AdvReac Type Severity Reaction Status Date / Time erythromycin base Allergy "ARM Verified 07/22/17 04:08 [From E-Mycin] SWELLED AFTER IV MED GIVEN" Penicillins Allergy "THROAT Verified 07/22/17 04:08 WAS ITCHY,RASH" tramadol AdvReac Intermediate Nausea Verified 07/22/17 04:08 - Home Medications Home Medications: Ambulatory Orders Atorvastatin Calcium [Lipitor] 10 mg PO HS 03/17/13 Carvedilol [Coreg -] 12.5 mg PO BID 03/17/13 Aspirin [Aspirin EC] 81 mg PO DAILY 12/05/16 Losartan Potassium [Cozaar -] 50 mg PO DAILY 07/20/17 Ibuprofen [Motrin -] 400 mg PO ONCE 07/22/17 Oxycodone HCl/Acetaminophen [Percocet 5-325 mg Tablet] 1 tab PO PRN 07/22/17 Physical Exam- Vital Signs: Vital Signs Temperature 97.9 F 07/22/17 14:19 Pulse Rate 71 07/22/17 14:19 Respiratory Rate 16 07/22/17 14:19 Blood Pressure 145/74 07/22/17 14:19 O2 Sat by Pulse Oximetry (%) 98 07/22/17 07:51 Labs: CBC, BMP 07/22/17 04:40 07/22/17 04:40 Imaging - Results Cat Scan: Report Reviewed Problem List - Problems (1) Kidney stone on left side Assessment/Plan: tx options reviewed, plan for ESWL of stone in am if fails to pass Code(s): N20.0 - CALCULUS OF KIDNEY
[2017-07-22] MEDS ORDERED: ATORVASTATIN CA 10 MG TABLET (FP) PO SCH (22:00)
[2017-07-23] MEDS ORDERED: ceFAZolin SODIUM 1 GM VIAL IVPB ONE
[2017-07-23] MEDS: SODIUM CHLORIDE 1,000 ML IV SCH (00:06)
[2017-07-23 07:48] LABS: BASOPHIL 0.6 % (0-2.0); EOSINOPHIL 3.3 % (0-4.5); MCH 31.3 pg (25.7-33.7); MCHC 32.5 g/dl (32.0-36.0); MEAN CELL VOLUME 96.3 fl (80-96); MEAN PLT VOLUME 9.1 fl (7.5-11.1); NEUTROPHILS 57.4 % (42.8-82.8); PLATELET COUNT 185 K/MM3 (134-434); RDW 13.8 % (11.6-15.6); WHITE BLOOD COUNT 7.8 K/mm3 (4.0-10.0)
[2017-07-23 08:15] LABS: ANION GAP 8 (8-16); CO2 24 mmol/L (21-32); CREATININE 0.8 mg/dL (0.55-1.02); GLUCOSE,RANDOM 99 mg/dL (74-106)
[2017-07-23] MEDS ORDERED: PROPOFOL 20 ML ONE (09:28)
[2017-07-23] MEDS ORDERED: MIDAZOLAM HCL 2 MG/2 ML SINGLE DOSE VIAL ONE (09:28)
[2017-07-23] MEDS ORDERED: LEVOFLOXACIN 500 MG IVPB 500 MG/100 ML BAG IVPB ONE (09:28)
[2017-07-23] MEDS ORDERED: LEVOFLOXACIN 500 MG PREMIX BAG IVPB ONE ×2 (09:30)
[2017-07-23] MEDS ORDERED: IOHEXOL 300 MG/ML INFUS..BTL IV ONE (09:38)
--- NOTE | 2017-07-23 10:05 | OP ---
Operative Note - Note: Operative Date: 07/23/17 Pre-Operative Diagnosis: LDU stone Operation: ESWL Post-Operative Diagnosis: Same as Pre-op Surgeon: Charanjit Kolb Anesthesia: General Operative Report Dictated: Yes
[2017-07-23] MEDS ORDERED: ONDANSETRON 4 MG/2 ML VIAL IVPUSH PRN (10:45)
[2017-07-23] MEDS ORDERED: morphine SULFATE 4 MG/ML VIAL IVPUSH PRN (10:45)
[2017-07-23] MEDS ORDERED: SODIUM CHLORIDE 1,000 ML IV SCH (10:45)
[2017-07-23] MEDS ORDERED: oxyCODONE HCL 5 MG TABLET PO PRN (10:45)
--- NOTE | 2017-07-23 10:54 | OP ---
DATE OF OPERATION: 07/23/2017 PREOPERATIVE DIAGNOSIS: Obstructing left distal ureteral stone. POSTOPERATIVE DIAGNOSIS: Obstructing left distal ureteral stone. PROCEDURE: Extracorporeal shock wave lithotripsy. SURGEON: Radha Conway MD INDICATION: Patient is a 67-year-old female with obstructing left distal ureteral stone. After reviewing treatment options, elected to undergo ESWL, understood the risks of bleeding, infection, potential inability to fragment stone, potential need for additional procedures as a result, potential injury to adjacent organs. DESCRIPTION OF PROCEDURE: After informed consent was obtained, the patient was taken to the OR, placed supine on the table. After cardiac monitoring, administered general anesthesia by Tito. Stone could not be visualized under active fluoroscopy, so contrast was given, and approximately after about 15-20 minutes of contrast, there was hydronephrosis down to the distal ureter just past the SI joint. Then 3000 shocks were delivered at the area of obstruction once the area of obstruction was centered under crosshairs. At the completion of procedure patient was awoken from anesthesia and transferred to the recovery room in stable condition. There were no complications. Estimated blood loss was zero. RADHA CONWAY M.D. [id number]
--- NOTE | 2017-07-23 11:49 | DS ---
Physical Examination Vital Signs: Vital Signs Temperature 97.6 F 07/23/17 11:10 Pulse Rate 76 07/23/17 11:10 Respiratory Rate 16 07/23/17 11:10 Blood Pressure 135/61 07/23/17 11:10 O2 Sat by Pulse Oximetry (%) 99 07/23/17 11:00 Constitutional: Yes: No Distress, Calm Cardiovascular: Yes: Regular Rate and Rhythm Respiratory: Yes: CTA Bilaterally Gastrointestinal: Yes: Normal Bowel Sounds, Soft, Abdomen, Obese. No: Distention, Tenderness Renal/: No: CVA Tenderness - Left, CVA Tenderness - Right Edema: No Neurological: Yes: Alert, Oriented Psychiatric: Yes: Alert, Oriented Labs: CBC, BMP 07/23/17 07:30 07/23/17 07:30 Discharge Summary Reason For Visit: CALCULUS OF LEFT KIDNEY Current Active Problems Kidney stone on left side (Acute) Hospital Course: Pt admitted for calculus left kidney and severe intractable pain She was started on IV fluids and seen by Urology-- underwent ESWL today Pt is better and pain is well controlled Had urinated after the procedure No complaints She is stable for dc home and will be following with her PMD and Urology Condition: Fair - Instructions Referrals: Mateus Townsend MD [Primary Care Provider] - Disposition: HOME - Home Medications Comprehensive Discharge Medication List: Ambulatory Orders Atorvastatin Calcium [Lipitor] 10 mg PO HS 03/17/13 Carvedilol [Coreg -] 12.5 mg PO BID 03/17/13 Aspirin [Aspirin EC] 81 mg PO DAILY 12/05/16 Losartan Potassium [Cozaar -] 50 mg PO DAILY 07/20/17 Ibuprofen [Motrin -] 400 mg PO ONCE 07/22/17 Oxycodone HCl/Acetaminophen [Percocet 5-325 mg Tablet] 1 tab PO PRN 07/22/17
[2017-07-23 12:19] VITALS: BP 135/60; PULSE 54
[2017-07-23 14:28] VITALS: TEMP 98
[2017-07-23] MEDS ORDERED: CARVEDILOL 12.5 MG TABLET (FP) PO SCH (22:00)
[2017-07-23] MEDS ORDERED: ATORVASTATIN CA 10 MG TABLET (FP) PO SCH (22:00)
[2017-07-24] MEDS ORDERED: LOSARTAN POTASSIUM 50 MG TABLET (FP) PO SCH (10:00)
== END 2017-07-23 15:43 | disposition home or self-care (01) ==
LOC: JER 03:34 → INTOOBSV 05:42 → JERBED 05:42 → J6S 07:01
PROVIDERS: ADMIT Internal Medicine; ATTEND Internal Medicine
PROC: 3E0333Z Introduction of Anti-inflammatory into Peripheral Vein, Percutaneous Approach (ICD-10-PCS; 2017-07-22)
PROC: 3E033NZ Introduction of Analgesics, Hypnotics, Sedatives into Peripheral Vein, Percutaneous Approach (ICD-10-PCS; 2017-07-22)
PROC: 3E033GC Introduction of Other Therapeutic Substance into Peripheral Vein, Percutaneous Approach (ICD-10-PCS; 2017-07-22)
PROC: 3E0337Z Introduction of Electrolytic and Water Balance Substance into Peripheral Vein, Percutaneous Approach (ICD-10-PCS; 2017-07-22)
PROC: 3E0234Z Introduction of Serum, Toxoid and Vaccine into Muscle, Percutaneous Approach (ICD-10-PCS; 2017-07-22)
PROC: 0TF4XZZ Fragmentation in Left Kidney Pelvis, External Approach (ICD-10-PCS; principal; 2017-07-23 09:15)
DX: N13.2 Hydronephrosis with renal and ureteral calculous obstruction (principal); I10 Essential (primary) hypertension; E78.5 Hyperlipidemia, unspecified; Z79.82 Long term (current) use of aspirin; Z87.442 Personal history of urinary calculi; Z88.0 Allergy status to penicillin; Z88.8 Allergy status to other drugs, medicaments and biological substances; Z87.891 Personal history of nicotine dependence; Z23 Encounter for immunization
CPT/HCPCS: 36415; 50590; 74176; 80048; 80053; 81003; 81015; 83690; 85025; 85027; 87086; 90471; 90670; 93005; 93010; 94760; 96374; 96375; 99283-25; G0378

== ENCOUNTER 2017-12-31 23:18 | Inpatient (IN) | payer OTHER, BC ==
[2018-01-01] MEDS ORDERED: KETOROLAC TROMETHAMINE 30 MG/1 ML VIAL IVPUSH ONE (00:17)
[2018-01-01] MEDS ORDERED: SODIUM CHLORIDE 1,000 ML IV STA (00:17)
--- NOTE | 2018-01-01 00:17 | PDOC ---
History of Present Illness - General Chief Complaint: Pain, Acute Stated Complaint: PAIN Time Seen by Provider: 01/01/18 00:08 History Source: Patient Exam Limitations: No Limitations - History of Present Illness Initial Comments: CHIEF COMPLAINT: 67 y/o female with PMH HTN, HLD, slipped discs in back (on Narcotic pain medication), kidney stones c/o left sided flank pain x 3 hours. HISTORY OF PRESENT ILLNESS: The patient state the pain started at 9pm and feels like a kidney stone. She also admits to nausea. She denies f/c, v/d, CP , SOB, back pain hematuria, dysuria. She took a percocet at 9pm with no relief. Vital signs on arrival are within normal limits. PCP is Dr. Townsend Urologist is Dr. Cisneros REVIEW OF SYSTEMS: GENERAL/CONSTITUTIONAL: No fever/chills. No weakness. No weight change. HEAD, EYES, EARS, NOSE AND THROAT: No change in vision. No ear pain or discharge. No sore throat. CARDIOVASCULAR: No chest pain or shortness of breath. RESPIRATORY: No cough, wheezing, or hemoptysis. GASTROINTESTINAL: +left flank pain. +nausea. No vomiting, diarrhea, constipation. GENITOURINARY: No dysuria, frequency, or change in urination. MUSCULOSKELETAL: No joint or muscle swelling or pain. No neck or back pain. SKIN: No rash or easy bruising. NEUROLOGIC: No headache, vertigo, loss of consciousness, or loss of sensation. PHYSICAL EXAM: GENERAL: The patient is awake, alert, and fully oriented, pacing back and forth in the room secondary to pain. HEAD: Normal with no signs of trauma. ENT: Pupils equal, round and reactive to light, extraocular movements intact, sclera anicteric, conjunctiva clear. Neck supple. LUNGS: Clear to auscultation bilaterally. Normal excursion. No respiratory distress or use of accessory muscles. CV: RRR, S1/S2, no MRG. Cap refill < 2 sec. ABDOMEN: TTP of left flank. No suprapubic TTP. Soft, non-distended, non-tender even to deep palpation, no hepatomegaly or splenomegaly, no masses. BACK: No CVA TTP b/l. EXTREMITIES: Normal range of motion, no edema. NEUROLOGICAL: Normal speech, normal gait. CN II-XII grossly intact. PSYCH: Normal mood, normal affect. SKIN: Warm, dry, normal turgor, no rashes or lesions noted. Past History - Past Medical History Allergies/Adverse Reactions: Allergies Allergy/AdvReac Type Severity Reaction Status Date / Time erythromycin base Allergy "ARM Verified 01/01/18 00:07 [From E-Mycin] SWELLED AFTER IV MED GIVEN" Penicillins Allergy "THROAT Verified 01/01/18 00:07 WAS ITCHY,RASH" tramadol AdvReac Intermediate Nausea Verified 01/01/18 00:07 Home Medications: Ambulatory Orders Atorvastatin Calcium [Lipitor] 10 mg PO HS 03/17/13 Carvedilol [Coreg -] 12.5 mg PO BID 03/17/13 Aspirin [Aspirin EC] 81 mg PO DAILY 12/05/16 Losartan Potassium [Cozaar -] 50 mg PO DAILY 07/20/17 Oxycodone HCl/Acetaminophen [Percocet 5-325 mg Tablet] 1 tab PO PRN 07/22/17 COPD: No HTN: Yes Hypercholesterolemia: Yes Kidney Stones: Yes - Surgical History Cholecystectomy: Yes Orthopedic Surgery: Yes (JIE ROTATOR CUFF REPAIR) - Immunization History Immunization Up to Date: Yes - Suicide/Smoking/Psychosocial Hx Smoking Status: Yes Smoking History: Never smoked Have you smoked in the past 12 months: No Number of Cigarettes Smoked Daily: 0 If you are a former smoker, when did you quit?: 6 YRS Information on smoking cessation initiated: No Hx Alcohol Use: No Drug/Substance Use Hx: No Substance Use Type: None Hx Substance Use Treatment: No *Physical Exam - Vital Signs Last Vital Signs Temp Pulse Resp BP Pulse Ox 97.8 F 88 19 133/87 99 01/01/18 00:02 01/01/18 00:02 01/01/18 00:02 01/01/18 00:02 01/01/18 00:02 ED Treatment Course - LABORATORY CBC & Chemistry Diagram: 01/01/18 00:34 01/01/18 00:34 Medical Decision Making - Medical Decision Making A/P: 67 y/o female with signs and symptoms of renal colic/kidney stones. Plan is as follows: 1. Labs 2. UA/culture 3. IV fluids 4. IV toradol 5. Spiral CT Spiral CT IMPRESSION: 10mm stone on left side with moderate hydronephrosis. Patient feels better after toradol Informed her of stone size and plan for admission. Dr. Singleton accepts admission. Will put in for ficcazola consult. *DC/Admit/Observation/Transfer Diagnosis at time of Disposition: Kidney stone on left side - Discharge Dispostion Condition at time of disposition: Fair Admit: Yes - Referrals - Patient Instructions - Post Discharge Activity
[2018-01-01] MEDS ORDERED: KETOROLAC TROMETHAMINE 30 MG/1 ML VIAL ONE (00:36)
[2018-01-01 00:45] LABS: BASO % 0.7 % (0-2.0); EOS % 2.1 % (0-4.5); HEMATOCRIT 37.1 % (32.4-45.2); HEMOGLOBIN 12.6 GM/dL (10.7-15.3); LYMPH % 26.8 % (8-40); MCH 33.3 pg (25.7-33.7); MCHC 34.1 g/dl (32.0-36.0); MEAN CELL VOLUME 97.6 fl (80-96); MEAN PLT VOLUME 8.9 fl (7.5-11.1); NEUT % 63.4 % (42.8-82.8); PLATELET COUNT 213 K/MM3 (134-434); RDW 13.5 % (11.6-15.6); WHITE BLOOD COUNT 10.1 K/mm3 (4.0-10.0)
--- NOTE | 2018-01-01 04:18 | PN ---
Teaching Attending Note Name of Resident: Senait Munoz ATTENDING PHYSICIAN STATEMENT I saw and evaluated the patient. I reviewed the resident's note and discussed the case with the resident. I agree with the resident's findings and plan as documented. SUBJECTIVE: 67 F htn, hld, renal stones, herniated lumbar discs with stenosis, who presents with left low back pain. States this pain is similar to her prior episodes of left low back pain and is non-radiating. Notes no fevers or chills. No urinary burning or pain. No, nausea, vomiting, or diarrhea. No chest pain or pressure. Pshx: R. Ureteral stent (12/06/16)- removed one week later choleycystectomy B/L rotator cuff repair X2 OBJECTIVE: Physical: VS: Vital Signs Period Temp Pulse Resp BP Sys/Spann Pulse Ox Last 24 Hr 97.8 F 68-88 18-19 130-133/80-87 99-99 GEN: NAD, Resting in bed, AA0X3 HEENT: NCAT, PERRL, Throat without erythema or exudates CARD: RRR S1, S2 RESP: CTAB ABD: BSx4, NTD to palpation EXT: - C/C/E LABS- SEE Paper chart CT abD: 10 Prox. Mid ureteral stone w. L. hydro Home Medications Medication Instructions Recorded Atorvastatin Calcium [Lipitor] 10 mg PO HS 03/17/13 Carvedilol [Coreg -] 12.5 mg PO BID 03/17/13 Aspirin [Aspirin EC] 81 mg PO DAILY 12/05/16 Losartan Potassium [Cozaar -] 50 mg PO DAILY 07/20/17 Oxycodone HCl/Acetaminophen 1 tab PO PRN 07/22/17 [Percocet 5-325 mg Tablet] Ambulatory Orders Atorvastatin Calcium [Lipitor] 10 mg PO HS 03/17/13 Carvedilol [Coreg -] 12.5 mg PO BID 03/17/13 Aspirin [Aspirin EC] 81 mg PO DAILY 12/05/16 Losartan Potassium [Cozaar -] 50 mg PO DAILY 07/20/17 Oxycodone HCl/Acetaminophen [Percocet 5-325 mg Tablet] 1 tab PO PRN 07/22/17 EKG- PENDING ASSESSMENT AND PLAN: 67 F htn, hld, renal stones, herniated lumbar discs with stenosis, who presents with left low back pain, found to have nephrolithiasis with left hydronephrosis 1.) Nephrolithiasis with Left. Hydronephrosis - IVF - Pain control - Flomax - Urine strain - Coags - Type & Screen - Urology consult - NPO 2.) UTI - U cx - Ceftriaxone 3.) HTN - C/W Coreg 4.) HLD - C/w Statin 5.) Dvt Ppx - Scds Place in Med-Sx
[2018-01-01 04:25] LABS: ALBUMIN 3.8 g/dl (3.4-5.0); ALK PHOS 64 U/L (45-117); ANION GAP 9 (8-16); BILIRUBIN,TOTAL 0.4 mg/dL (0.2-1.0); BLOOD UREA NITROGEN 17 mg/dL (7-18); CALCIUM 8.8 mg/dL (8.5-10.1); CHLORIDE 108 mmol/L (98-107); CO2 26 mmol/L (21-32); CREATININE 1.1 mg/dL (0.55-1.02); GLUCOSE,RANDOM 108 mg/dL (74-106); POTASSIUM 4.4 mmol/L (3.5-5.1); SGOT/AST 13 U/L (15-37); SGPT/ALT 21 U/L (12-78); SODIUM 143 mmol/L (136-145); TOT PROT 6.8 g/dl (6.4-8.2)
[2018-01-01] MEDS ORDERED: morphine CARPU-JECT 2 MG/1 ML DISP.SYRIN IVPUSH ONE (04:26)
[2018-01-01] MEDS ORDERED: morphine SULFATE 4 MG/ML VIAL ONE (04:27)
[2018-01-01] MEDS ORDERED: SODIUM CHLORIDE 1,000 ML IV SCH (04:30)
[2018-01-01] MEDS ORDERED: ONDANSETRON 4 MG/2 ML VIAL IVPUSH PRN (04:39)
[2018-01-01 04:42] LABS: URINE APPEARANCE CLOUDY; URINE BILIRUBIN NEGATIVE (<2.0 mg/dL); URINE COLOR YELLOW; URINE GLUCOSE (UA) NEGATIVE (NEGATIVE)
[2018-01-01 04:43] LABS: URINE KETONE NEGATIVE (NEGATIVE); URINE LEUK ESTERASE TRACE (NEGATIVE); URINE NITRITE NEGATIVE (NEGATIVE); URINE PROTEIN 1+ (NEGATIVE); URINE UROBILINOGEN NORMAL mg/dL (0.2-1.0)
[2018-01-01 04:44] LABS: EPI CELLS RARE /HPF (FEW); URIC ACID CRYSTALS FEW /hpf (NONE SEEN); URINE MUCUS RARE
--- NOTE | 2018-01-01 04:44 | HP ---
CHIEF COMPLAINT: L flank pain PCP: Dr Townsend Urologist: Dr. Cisneros HISTORY OF PRESENT ILLNESS: 67yo F with PMHx of recurrent nephrolithiasis who presents w/ sudden onset L sided flank pain since 8pm today. The pain is typical of prior stones, it is sharp, radiates to suprapubic region. Endorses some nausea. Denies fevers, chills, dysuria, freq, urgency. Denies CP SOB. Pain unrelieved w/ home percocet. States this is probably her 30th kidney stone, has had lithotripsies and stone removals in the past. Forgot what composition of stone she had. In the ER, the patient is hemodynamically stable. UA shows microscopic hematuria w/ trace LE and mild WBC. Spiral CT revealed 10mm stone in L ureter w / associated moderate hydronephrosis. Recent Travel: Denies PAST MEDICAL HISTORY: HTN, HLD, slipped discs in back (on Narcotic pain medication), Kidney stones PAST SURGICAL HISTORY: R. Ureteral stent (12/06/16)- removed one week later, Choleycystectomy, B/L rotator cuff repair, X2 Social History: Smoking: Denies Alcohol: Denies Drugs: Denies Allergies: erythromycin base [From E-Mycin] Allergy (Verified 01/01/18 00:07) "ARM SWELLED AFTER IV MED GIVEN" Penicillins Allergy (Verified 01/01/18 00:07) "THROAT WAS ITCHY,RASH" tramadol Adverse Reaction (Intermediate, Verified 01/01/18 00:07) Nausea HOME MEDICATIONS: Home Medications Medication Instructions Recorded Atorvastatin Calcium [Lipitor] 10 mg PO HS 03/17/13 Carvedilol [Coreg -] 12.5 mg PO BID 03/17/13 Aspirin [Aspirin EC] 81 mg PO DAILY 12/05/16 Losartan Potassium [Cozaar -] 50 mg PO DAILY 07/20/17 Oxycodone HCl/Acetaminophen 1 tab PO PRN 07/22/17 [Percocet 5-325 mg Tablet] REVIEW OF SYSTEMS CONSTITUTIONAL: Absent: fever, chills, diaphoresis, generalized weakness, malaise, loss of appetite, weight change HEENT: Absent: rhinorrhea, nasal congestion, throat pain, throat swelling, difficulty swallowing, mouth swelling, ear pain, eye pain, visual changes CARDIOVASCULAR: Absent: chest pain, syncope, palpitations, irregular heart rate , lightheadedness, peripheral edema RESPIRATORY: Absent: cough, shortness of breath, dyspnea with exertion, orthopnea, wheezing, stridor, hemoptysis GASTROINTESTINAL:Absent: abdominal pain, abdominal distension, nausea, vomiting , diarrhea, constipation, melena, hematochezia GENITOURINARY: Absent: dysuria, frequency, urgency, hesitancy, hematuria, flank pain, genital pain MUSCULOSKELETAL: Absent: myalgia, arthralgia, joint swelling, back pain, neck pain SKIN: Absent: rash, itching, pallor HEMATOLOGIC/IMMUNOLOGIC: Absent: easy bleeding, easy bruising, lymphadenopathy, frequent infections ENDOCRINE:Absent: unexplained weight gain, unexplained weight loss, heat intolerance, cold intolerance NEUROLOGIC: Absent: headache, focal weakness or paresthesias, dizziness, unsteady gait, seizure, mental status changes, bladder or bowel incontinence PSYCHIATRIC: Absent: anxiety, depression, suicidal or homicidal ideation, hallucinations. PHYSICAL EXAMINATION Vital Signs Period Temp Pulse Resp BP Sys/Spann Pulse Ox Last 24 Hr 97.8 F 68-88 18-19 130-133/80-87 99-99 GEN: AAOx3, NAD, Lying comfortably, smiling HEENT: PERRla, EOMi, no JVD CV: S1, S2, RRR< 3/6 systolic murmur LUNG: CTABL ABD: Soft, NT, ND, normoactive BS, mild soreness in L flank MSK: No edema, no eryhtema NEURO: CN 2-12 intact, no sensation or msk deficits ASSESSMENT/PLAN: 67yo F with PMHx of recurrent nephrolithiasis who presents w/ L sided flank pain since 8pm today, found to have 10mm L ureteral kidney stone w/ assoc mod hydro # L kidney stone w/ hydro -- Recurrent history, unclear etiology, follows w/ urology. NPO and pre-op labs for possible intervention. Hold home ASA. Morphine PRN for pain, zofran for nausea, flomax daily. Strain urine. Urology consult. # Asymptomatic Pyuria -- Will cover w/ one dose of Levaquin 750 due to severe PCN allergy, nothing scheduled. followup Ucx. # Mild Cr elevation -- Likely from obstructive hydro on L. Should improve w/ stone removal. Hold losartan # HTN -- Controlled, continue carvedilol # HLD -- Continue home statin # FEN/Ppx -- IVNS @ 100cc/hr, NPO, SCDs # Dispo -- Admit to med surg Case d/w Dr Lu & Dr Mani Munoz MD - [id number] Night Systems Coordinator Visit type - Emergency Visit Emergency Visit: Yes ED Registration Date: 01/01/18 Care time: The patient presented to the Emergency Department on the above date and was hospitalized for further evaluation of their emergent condition. - New Patient This patient is new to me today: Yes Date on this admission: 01/01/18 - Critical Care Critical Care patient: No Hospitalist Screening - Colonoscopy Questionnaire Colonoscopy Questionnaire: Colonoscopy Questionnaire - Patient: 50 - 75 years old and never had a screening colonoscopy: Unknown History of colon or rectal polyps, or CA: Unknown History of IBD, Crohn's disease or UC: Unknown History of abdominal radiation therapy as a child: Unknown - Relative: 1 with colon or rectal CA, or polyps at age 60 or younger: Unknown Colon or rectal CA diagnosed at age 45 or younger: Unknown Multiple relatives with colon or rectal CA: Unknown - Outcome: Screening Result: Negative Screen
[2018-01-01 04:45] LABS: INR 0.87 (0.82-1.09); PROTHROMBIN TIME (PATIENT) 9.8 SEC (9.7-13.0)
[2018-01-01] MEDS ORDERED: CEFTRIAXONE 1 GM in DEXTROSE 5%-WATER - 50 ML IVPB ONE (05:30)
[2018-01-01] MEDS: SODIUM CHLORIDE 1,000 ML IV SCH ×2 (05:40→20:07)
[2018-01-01 08:12] VITALS: BMI 41.8
[2018-01-01 08:49] LABS: HEMATOCRIT 34.6 % (32.4-45.2); HEMOGLOBIN 11.7 GM/dL (10.7-15.3); MCH 33.3 pg (25.7-33.7); MEAN PLT VOLUME 8.9 fl (7.5-11.1); PLATELET COUNT 163 K/MM3 (134-434); RBC 3.53 M/mm3 (3.60-5.2); RDW 13.6 % (11.6-15.6); WHITE BLOOD COUNT 6.6 K/mm3 (4.0-10.0)
[2018-01-01 09:06] LABS: ANION GAP 6 (8-16); BLOOD UREA NITROGEN 21 mg/dL (7-18); CALCIUM 7.7 mg/dL (8.5-10.1); CHLORIDE 112 mmol/L (98-107); CO2 24 mmol/L (21-32); CREATININE 1.2 mg/dL (0.55-1.02); GLUCOSE,RANDOM 107 mg/dL (74-106); PHOSPHOROUS 3.4 mg/dL (2.5-4.9); POTASSIUM 4.1 mmol/L (3.5-5.1); SODIUM 142 mmol/L (136-145)
[2018-01-01] MEDS: TAMSULOSIN HCL 0.4 MG CAP.ER.24H (FP) PO SCH (09:21)
[2018-01-01] MEDS: CARVEDILOL 12.5 MG TABLET (FP) PO SCH ×2 (09:21→21:31)
[2018-01-01] MEDS ORDERED: LOSARTAN POTASSIUM 50 MG TABLET (FP) PO SCH (10:00)
--- NOTE | 2018-01-01 10:32 | EKG ---
Test Reason : Blood Pressure : / mmHG Vent. Rate : 074 BPM Atrial Rate : 074 BPM P-R Int : 168 ms QRS Dur : 082 ms QT Int : 412 ms P-R-T Axes : 052 -23 010 degrees QTc Int : 457 ms NORMAL SINUS RHYTHM INFERIOR INFARCT , AGE UNDETERMINED ABNORMAL ECG WHEN COMPARED WITH ECG OF 22-JUL-2017 06:16, NO SIGNIFICANT CHANGE WAS FOUND Confirmed by ELISABETH GALLEGOS MD ([id number]) on 01/01/2018 10:32:04 AM Referred By: Confirmed By:ELISABETH GALLEGOS MD
--- NOTE | 2018-01-01 11:30 | CON.GU ---
Consult Consult Specialty:: Referred by:: Medicine Reason for Consultation:: left ureteral stone. hydronephrosis - History of Present Illness Chief Complaint: left renal colic History of Present Illness: 67 year old female with recurrent kidney stones. She presents to [facility] with one day of left flank pain and nausea. She is feeling better this morning. SHe has passed many stones before and has had ESWLs. NO fevers and no signs of infection or sepsis. CT shows a 9mm upper ureteral stone. - History Source History Provided By: Patient, Medical Record Limitations to Obtaining History: No Limitations - Past Medical History Cardio/Vascular: Yes: HTN, Hyperlipdemia Renal/: Yes: Renal Calculi - Past Surgical History Past Surgical History: Yes: Cholecystectomy, - Alcohol/Substance Use Hx Alcohol Use: No - Smoking History Smoking history: Never smoked Have you smoked in the past 12 months: No Aproximately how many cigarettes per day: 0 If you are a former smoker, when did you quit?: 6 YRS - Social History ADL: Independent History of Recent Travel: No Home Medications - Allergies Allergies/Adverse Reactions: Allergies Allergy/AdvReac Type Severity Reaction Status Date / Time erythromycin base Allergy "ARM Verified 01/01/18 00:07 [From E-Mycin] SWELLED AFTER IV MED GIVEN" Penicillins Allergy "THROAT Verified 01/01/18 00:07 WAS ITCHY,RASH" tramadol AdvReac Intermediate Nausea Verified 01/01/18 00:07 - Home Medications Home Medications: Ambulatory Orders Atorvastatin Calcium [Lipitor] 10 mg PO HS 03/17/13 Carvedilol [Coreg -] 12.5 mg PO BID 03/17/13 Aspirin [Aspirin EC] 81 mg PO DAILY 12/05/16 Losartan Potassium [Cozaar -] 50 mg PO DAILY 07/20/17 Oxycodone HCl/Acetaminophen [Percocet 5-325 mg Tablet] 1 tab PO PRN 07/22/17 Review of Systems - Review of Systems Constitutional: denies: Chills, Fever, Night Sweats Respiratory: denies: SOB Genitourinary: reports: Flank Pain. denies: Burning, Dysuria, Frequency, Hematuria, Incontinence, Pain Physical Exam- Vital Signs: Vital Signs Temperature 97.9 F 01/01/18 08:22 Pulse Rate 72 01/01/18 08:22 Respiratory Rate 18 01/01/18 08:22 Blood Pressure 116/74 01/01/18 08:22 O2 Sat by Pulse Oximetry (%) 99 01/01/18 04:25 Constitutional: Yes: Well Nourished, No Distress, Calm Renal/: No: Bladder Distention, CVA Tenderness - Left, CVA Tenderness - Right , George Present, Hematuria, Incontinence Kidneys: No: Flank Pain Left, FLank Pain Right, Tenderness Labs: CBC, BMP 01/01/18 08:30 01/01/18 08:30 Imaging - Results Cat Scan: Report Reviewed Problem List - Problems (1) Calculus of proximal left ureter Assessment/Plan: 9mm stone. no infection, Patient is comfortable. Medical expulsive therapy. KUB. If remains comfortable can discharge and will arrange for outpatient ESWL. Medical clearance for anesthesia requested. Code(s): N20.1 - CALCULUS OF URETER
[2018-01-01] MEDS: morphine SULFATE 4 MG/ML VIAL IVPUSH PRN ×2 (16:16→22:07)
[2018-01-01] MEDS: KETOROLAC TROMETHAMINE 30 MG/1 ML VIAL IVPUSH SCH (17:49)
[2018-01-01] MEDS ORDERED: ATORVASTATIN CA 10 MG TABLET (FP) PO SCH (22:00)
[2018-01-02] MEDS: KETOROLAC TROMETHAMINE 30 MG/1 ML VIAL IVPUSH SCH ×3 (01:57→18:05)
[2018-01-02] MEDS: SODIUM CHLORIDE 1,000 ML IV SCH ×3 (06:21→18:06)
[2018-01-02] MEDS: TAMSULOSIN HCL 0.4 MG CAP.ER.24H (FP) PO SCH (08:52)
[2018-01-02] MEDS: CARVEDILOL 12.5 MG TABLET (FP) PO SCH ×2 (10:53→21:13)
--- NOTE | 2018-01-02 11:09 | PN ---
Progress Note, Physician Chief Complaint: has pain in left side of back No stones strained in urine Pt is awaiting to go to OR for ESWL - Current Medication List Current Medications: Active Medications Sodium Chloride (Normal Saline -) 1,000 mls @ 1,000 mls/hr IV ASDIR STA Stop: 01/01/18 01:16 Last Admin: 01/01/18 00:39 Dose: 1,000 mls/hr - Objective Vital Signs: Vital Signs Temperature 98.2 F 01/02/18 06:48 Pulse Rate 72 01/02/18 06:48 Respiratory Rate 20 01/02/18 06:48 Blood Pressure 126/57 01/02/18 06:48 O2 Sat by Pulse Oximetry (%) 99 01/01/18 21:00 Constitutional: Yes: No Distress Cardiovascular: Yes: Regular Rate and Rhythm Respiratory: Yes: CTA Bilaterally Gastrointestinal: Yes: Normal Bowel Sounds, Soft, Abdomen, Obese. No: Tenderness Genitourinary: Yes: CVA Tenderness - Left Edema: No Labs: CBC, BMP 01/01/18 08:30 01/01/18 08:30 INR, PTT INR 0.87 (0.82-1.09) 01/01/18 02:25 Problem List - Problems (1) UTI (urinary tract infection) Code(s): N39.0 - URINARY TRACT INFECTION, SITE NOT SPECIFIED (2) Calculus of proximal left ureter Code(s): N20.1 - CALCULUS OF URETER (3) Hyperlipidemia Code(s): E78.5 - HYPERLIPIDEMIA, UNSPECIFIED (4) Hypertension Code(s): I10 - ESSENTIAL (PRIMARY) HYPERTENSION Qualifiers: Hypertension type: essential hypertension Qualified Code(s): I10 - Essential (primary) hypertension Assessment/Plan PLAN Continue with IV antibiotics-- urine cultures positive IV fluids Keep NPO pain control with Toradol cleared for EWSL
[2018-01-02] MEDS ORDERED: MIDAZOLAM HCL 2 MG/2 ML SINGLE DOSE VIAL ONE (12:24)
--- NOTE | 2018-01-02 12:34 | PN ---
Progress Note (short form) - Note Progress Note: still with colic requiring analgesics afebrile treatment options reviewed pt elects left ureteroscopy/laser litho
[2018-01-02] MEDS ORDERED: DEXAMETHASONE SOD PHOSPHATE 4 MG/1 ML VIAL ONE (12:42)
[2018-01-02] MEDS ORDERED: LIDOCAINE HCL/PF 2% SDV 5ML VIAL ONE (12:44)
[2018-01-02] MEDS ORDERED: PROPOFOL 20 ML ONE (12:44)
[2018-01-02] MEDS ORDERED: ROCURONIUM BROMIDE 50 MG/5 ML VIAL ONE (12:44)
[2018-01-02] MEDS ORDERED: SUCCINYLCHOLINE CHLORIDE 200 MG/10 ML VIAL ONE (12:45)
--- NOTE | 2018-01-02 13:24 | OP ---
Operative Note - Note: Operative Date: 01/02/18 Pre-Operative Diagnosis: obstructing LPU stone Operation: cysto/retro/left ureteroscopy/laser litho/stone basket/stent Findings: LPU stone Surgeon: Charanjit Kolb Anesthesia: General Specimens Removed: stone frags Estimated Blood Loss (mls): 2 Drains & Tubes with Location: 7fr,24cm stent Operative Report Dictated: Yes
[2018-01-02] MEDS ORDERED: LACTATED RINGERS SOLUTION 1,000 ML IV SCH (13:30)
[2018-01-02] MEDS ORDERED: ONDANSETRON 4 MG/2 ML VIAL IVPUSH PRN (13:41)
[2018-01-02] MEDS ORDERED: morphine SULFATE 4 MG/ML VIAL IVPUSH PRN (13:41)
--- NOTE | 2018-01-02 14:02 | OP ---
DATE OF OPERATION: 01/02/2018 PREOPERATIVE DIAGNOSIS: Obstructing left proximal ureteral stone. POSTOPERATIVE DIAGNOSIS: Obstructing left proximal ureteral stone. PROCEDURE: Cystoscopy, retrograde pyelogram, ureteroscopy, laser lithotripsy, stone basketing and stent placement. SURGEON: Radha Conway MD INDICATION: Patient is a 67-year-old female admitted with an obstructing stone in the left proximal ureter, history of nephrolithiasis in the past. After reviewing the treatment options patient elected to undergo ureteroscopy, laser lithotripsy. Risks, benefits and alternatives were discussed. Patient was taken to the OR, placed supine on the table. After cardiac monitoring administered, general anesthesia was established. She was prepped and draped in dorsal lithotomy position. A 22-sheath resectoscope was inserted into the urethra and into the bladder without difficulty. Attention was turned to the left ureteral orifice, intubated with a ureteral catheter. Contrast was injected through this for a retrograde pyelogram. There was hydronephrosis down to the level of the proximal ureter where a stone was seen. A guidewire was advanced down to the stone. A dual-lumen catheter was advanced and a 2nd guidewire was advanced to the level of the stone. Over the 2nd guidewire a flexible ureteroscope was advanced to the level of the stone. The stone was seen impacted in the left proximal ureter. Using a 365-micron laser fiber the stone was pulverized to fine dust and 1- to 2-mm fragments until the entire stone burden was treated. The rest of the ureter was inspected. No other stones were noted. Several of the stone fragments were removed with the stone basket and sent to Pathology for analysis. The ureteroscope was then removed and a 7-Wolof, 24-cm double-pigtail stent was then advanced in a monorail fashion. Fluoroscopy confirmed the stent to be in good position. Patient tolerated the procedure well, was transferred to recovery in stable condition. There were no complications. Estimated blood loss minimal. RADHA CONWYA M.D. [id number]
[2018-01-02] MEDS ORDERED: ATORVASTATIN CA 10 MG TABLET (FP) PO SCH (22:00)
[2018-01-03] MEDS: KETOROLAC TROMETHAMINE 30 MG/1 ML VIAL IVPUSH SCH ×2 (01:17→10:21)
[2018-01-03] MEDS: SODIUM CHLORIDE 1,000 ML IV SCH (04:00)
[2018-01-03 07:33] LABS: HEMATOCRIT 32.6 % (32.4-45.2); HEMOGLOBIN 11.1 GM/dL (10.7-15.3); MCH 33.4 pg (25.7-33.7); MEAN CELL VOLUME 98.4 fl (80-96); MEAN PLT VOLUME 9.5 fl (7.5-11.1); PLATELET COUNT 176 K/MM3 (134-434); RBC 3.31 M/mm3 (3.60-5.2); RDW 13.5 % (11.6-15.6); WHITE BLOOD COUNT 7.6 K/mm3 (4.0-10.0)
[2018-01-03 07:37] LABS: CHLORIDE 113 mmol/L (98-107); POTASSIUM 4.4 mmol/L (3.5-5.1); SODIUM 141 mmol/L (136-145)
[2018-01-03 07:43] LABS: ALK PHOS 72 U/L (45-117); ANION GAP 7 (8-16); BILIRUBIN,TOTAL 0.3 mg/dL (0.2-1.0); BLOOD UREA NITROGEN 14 mg/dL (7-18); CALCIUM 8.2 mg/dL (8.5-10.1); CO2 21 mmol/L (21-32); CREATININE 0.9 mg/dL (0.55-1.02); GLUCOSE,RANDOM 145 mg/dL (74-106); SGOT/AST 21 U/L (15-37); SGPT/ALT 29 U/L (12-78); TOT PROT 5.9 g/dl (6.4-8.2)
[2018-01-03] MEDS: CARVEDILOL 12.5 MG TABLET (FP) PO SCH (10:22)
--- NOTE | 2018-01-03 11:02 | DS ---
Physical Examination Vital Signs: Vital Signs Temperature 98 F 01/03/18 06:29 Pulse Rate 80 01/03/18 06:29 Respiratory Rate 20 01/03/18 06:29 Blood Pressure 143/66 01/03/18 06:29 O2 Sat by Pulse Oximetry (%) 95 01/02/18 21:00 Findings/Remarks: postop day #1 Chart reviewed Patient comfortable Afebrile denies pain Constitutional: Yes: No Distress, Calm Eyes: Yes: Conjunctiva Clear Neck: Yes: Supple Cardiovascular: Yes: Regular Rate and Rhythm Respiratory: Yes: CTA Bilaterally Gastrointestinal: Yes: Normal Bowel Sounds, Soft Edema: No Neurological: Yes: Alert Labs: CBC, BMP 01/03/18 05:35 01/03/18 05:35 Discharge Summary Reason For Visit: CALCULUS OF LEFT KIDNEY Current Active Problems Calculus of proximal left ureter (Acute) UTI (urinary tract infection) (Acute) Hospital Course: 7yo F with PMHx of recurrent nephrolithiasis who presents w/ sudden onset L sided flank pain since 8pm today. The pain is typical of prior stones, it is sharp, radiates to suprapubic region. Endorses some nausea. Denies fevers, chills, dysuria, freq, urgency. Denies CP SOB. Pain unrelieved w/ home percocet. States this is probably her 30th kidney stone, has had lithotripsies and stone removals in the past. Forgot what composition of stone she had. In the ER, the patient is hemodynamically stable. UA shows microscopic hematuria w/ trace LE and mild WBC. Spiral CT revealed 10mm stone in L ureter w / associated moderate hydronephrosis. patient underwent surgery yesterday Surgical notes reviewed In summary Operative Date: 01/02/18 Pre-Operative Diagnosis: obstructing LPU stone Operation: cysto/retro/left ureteroscopy/laser litho/stone basket/stent Findings: LPU stone Surgeon: Charanjit Kolb Patient doing well now Would like to go home Cleared also by the surgeon Follow-up with urologist as an outpatient as well as with PMD As advised Will send on by mouth antibiotics Medications reconciled Discussed with nursing staff also Will discharge today Condition: Improved - Instructions Disposition: HOME - Home Medications Comprehensive Discharge Medication List: Ambulatory Orders Atorvastatin Calcium [Lipitor] 10 mg PO HS 03/17/13 Carvedilol [Coreg -] 12.5 mg PO BID 03/17/13 Aspirin [Aspirin EC] 81 mg PO DAILY 12/05/16 Losartan Potassium [Cozaar -] 50 mg PO DAILY 07/20/17 Oxycodone HCl/Acetaminophen [Percocet 5-325 mg Tablet] 1 tab PO PRN 07/22/17 Levofloxacin [Levaquin] 500 mg PO DAILY #5 tablet 01/03/18 Tamsulosin HCl [Flomax -] 0.4 mg PO DAILY@0830 cap.er.24h 01/03/18
[2018-01-03 11:12] VITALS: BP 150/64; PULSE 84; TEMP 98.1
--- NOTE | 2018-01-06 15:09 | PATH ---
Surgical Pathology Report Patient Name: ANA MICHELLE Med. Rec. #: [id number] /Age/Gender: 1950 (Age: 67) / F Account: [id number] Location: [facility] MED/SURG Taken: 01/02/2018 Received: 01/03/2018 Reported: 01/06/2018 Physicians: Matthew Thompson M.D. Specimen(s) Received LEFT KIDNEY CALCULI Clinical History Left kidney calculus Final Diagnosis KIDNEY, LEFT, CALCULUS, LASER LITHOTRIPSY:RENAL CALCULI. MACROSCOPIC DIAGNOSIS. Electronically Signed Lauren Drake M.D. Gross Description Received fresh labeled "left kidney calculus," is a 0.2 cm greatest dimension otto, irregular calculus which is sent for chemical analysis. /01/03/2018 saudi/01/03/2018
[2018-01-28 14:12] LABS: SIZE 3x3x2 mm (.); URIC ACID 95 % (.); WEIGHT 4.4 mg (.)
== END 2018-01-03 13:15 | disposition home or self-care (01) | DRG 669 ==
LOC: JER 23:18 → JERBED 01-01 04:03 → J8W 01-01 05:04
PROVIDERS: ADMIT Internal Medicine; ATTEND Internal Medicine
PROC: 0TC78ZZ Extirpation of Matter from Left Ureter, Via Natural or Artificial Opening Endoscopic (ICD-10-PCS; principal; 2018-01-01)
PROC: 0T778DZ Dilation of Left Ureter with Intraluminal Device, Via Natural or Artificial Opening Endoscopic (ICD-10-PCS; 2018-01-01)
PROC: BT1BZZZ Fluoroscopy of Bladder and Urethra (ICD-10-PCS; 2018-01-01)
DX: N13.2 Hydronephrosis with renal and ureteral calculous obstruction (principal); Z68.41 Body mass index [BMI] 40.0-44.9, adult; N39.0 Urinary tract infection, site not specified; E66.9 Obesity, unspecified; I10 Essential (primary) hypertension; E78.5 Hyperlipidemia, unspecified; Z88.0 Allergy status to penicillin
CPT/HCPCS: 36415; 71045-TC-FY; 74018-TC-FY; 74176; 76000-TC-FY; 80048; 80053; 81003; 81015; 82360; 83735; 84100; 85025; 85027; 85610; 85730; 86850; 86900; 86901; 87077; 87086; 88300-TC; 93005; 93010; 94760; 97116-GP; 97161-GP; 99283-25; J7030